=== PATIENT | female | born 1970 | race Caucasian/White ===

== ENCOUNTER 2022-07-24 11:03 | Outpatient (REF) | payer OTHER, SELFPAY ==
[2022-07-24 11:25] LABS: MANUAL DIFF FLAG NO
[2022-07-24 13:00] LABS: Basophils Percent Auto 0.5 % (0-2); Eosinophils Absolute Auto 0.2 X10*3/uL (0.0-0.4); Eosinophils Percent Auto 2.9 % (0-4); Hematocrit 37.3 % (37.0-47.0); Hemoglobin 11.7 g/dl (12.0-16.0); Imm Gran Abs Auto 0.02 X10*3/uL (0.00-0.03); Imm Gran Pct Auto 0.4 % (0.0-0.4); Lymphocytes Absolute Auto 1.8 X10*3/uL (1.2-4.9); Lymphocytes Percent Auto 32.8 % (20-40); Mean Corpuscular HGB Conc 31.4 g/dl (31.0-35.0); Mean Corpuscular Hemoglobin 24.7 pg (27.0-33.0); Mean Corpuscular Volume 78.9 fL (80.0-98.0); Mean Platelet Volume 11.5 fL (9.4-12.3); Monocytes Absolute Auto 0.4 X10*3/uL (0.1-1.2); Monocytes Percent Auto 7.7 % (2-11); Neutrophils Absolute Auto 3.1 x10*3/uL (2.0-8.3); Neutrophils Percent Auto 55.7 % (45-73); Platelet Count 224 X10*3/uL (160-400); Red Blood Count 4.73 X10*6/uL (4.20-5.50); Red Cell Distribution Width 14.7 % (11.0-16.0); White Blood Count 5.5 X10*3/uL (4.8-10.8)
[2022-07-24 13:48] LABS: Alanine Aminotransferase 24 U/L (0-31); Alkaline Phosphatase 44 U/L (39-117); Anion Gap 11 (12-20); Aspartate Amino Transferase 19 U/L (5-31); Bilirubin Total 0.4 mg/dL (0.0-1.0); Blood Urea Nitrogen 12 mg/dL (9-16); Calcium 8.8 mg/dL (8.4-10.2); Carbon Dioxide 21 mmol/L (22-29); Cholesterol 136 mg/dL; Estimated Glomerular Filt Rate > 60; Glucose Random 88 mg/dL (60-115); HDL Cholesterol 44 mg/dL; LDL Cholesterol Calculated 78 mg/dl; Total Protein 6.5 g/dL (6.5-8.0); Triglycerides 73 mg/dL
[2022-07-24 14:26] LABS: Chloride 110 mmol/L (96-108); Potassium 4.1 mmol/L (3.3-5.1); Sodium 139 mmol/L (135-145)
== END 2022-07-24 11:04 | disposition home or self-care (01) ==
LOC: HO.LAB 11:03
PROVIDERS: PCP Internal Medicine; Visit Provider Internal Medicine
DX: Z00.00 Encounter for general adult medical examination without abnormal findings (principal); B35.1 Tinea unguium; I10 Essential (primary) hypertension; M76.61 Achilles tendinitis, right leg
CPT/HCPCS: 36415; 80053; 80061; 84443; 85025

== ENCOUNTER 2022-10-23 12:44 | Outpatient (REF) | payer OTHER, SELFPAY ==
[2022-10-23 13:07] LABS: MANUAL DIFF FLAG NO
[2022-10-23 14:00] LABS: Basophils Percent Auto 0.5 % (0-2); Eosinophils Absolute Auto 0.2 X10*3/uL (0.0-0.4); Eosinophils Percent Auto 2.7 % (0-4); Hematocrit 36.7 % (37.0-47.0); Hemoglobin 11.8 g/dl (12.0-16.0); Imm Gran Abs Auto 0.02 X10*3/uL (0.00-0.03); Imm Gran Pct Auto 0.4 % (0.0-0.4); Lymphocytes Absolute Auto 1.8 X10*3/uL (1.2-4.9); Mean Corpuscular HGB Conc 32.2 g/dl (31.0-35.0); Mean Corpuscular Hemoglobin 24.5 pg (27.0-33.0); Mean Corpuscular Volume 76.1 fL (80.0-98.0); Mean Platelet Volume 11.3 fL (9.4-12.3); Monocytes Absolute Auto 0.5 X10*3/uL (0.1-1.2); Monocytes Percent Auto 8.1 % (2-11); Neutrophils Absolute Auto 3.1 x10*3/uL (2.0-8.3); Neutrophils Percent Auto 56.3 % (45-73); Platelet Count 212 X10*3/uL (160-400); Red Blood Count 4.82 X10*6/uL (4.20-5.50); Red Cell Distribution Width 14.9 % (11.0-16.0); White Blood Count 5.6 X10*3/uL (4.8-10.8)
[2022-10-23 14:44] LABS: Ferritin 6 ng/mL (10-250)
[2022-10-24 21:23] LABS: Rubella IgG Antibody 7.05 Index; Rubeola IgG (Measles) >300.00 AU/mL
== END 2022-10-23 12:45 | disposition home or self-care (01) ==
LOC: HO.LAB 12:44
PROVIDERS: PCP Internal Medicine; Visit Provider Internal Medicine
DX: B35.1 Tinea unguium (principal); D64.9 Anemia, unspecified; M76.61 Achilles tendinitis, right leg
CPT/HCPCS: 36415; 82728; 85025; 86735; 86762; 86765; 86787

== ENCOUNTER 2025-02-15 14:30 | Outpatient (REF) | payer OTHER, SELFPAY ==
--- OUTSIDE RECORDS SUMMARY | 2025-02-15 13:00 | XMS_ITS | Encounter Summary ---
Author Organization [employer] Address [address] [facility] 7t [place] [address] Care Team Providers Care Wall Taper Name Role Phone Monica Alvarenga Primary Care Provider [phone] Encounter Details Date Type Department Care Team ([facility] st Contact Info) Description 02/15/2025 1:00 PM EST Office Visit [facility] MED[facility]INE [address], [place] [phone] Monica Alvarenga FNP [address] [place] [address] Adult wellness visit (Primary Dx) Social History Tobacco Use Types Packs/Day Years Used Date Smoking Tobacco: Never Passive Smoke Exposure: Never Smokeless Tobacco: Never Tobacco Cessation:Counseling Given: Not Answered Housing Stability Answer Date Recorded What is your housing situation today? I have balaji lerma 02/04/[address] you li ve. Do you have problems with any of the following? None of the above 02/04/2025 Food Insecurity Answer Date Recorded Within the past 12 months, y ou worried that your food would run out before you got money to buy more: Never True 02/04/2025 Within the past 12 months,th e food you bought just didn't last and you didn't have enough money to get more: Never True 01/2025 Transportation Answer Date Recorded In the past 12 months, has l ack of transportation kept you from medical appts, meetings, work or from getting things needed for daily living? No 02/04/2025 Utilities Answer Date Recorded In the past 12 months, has t he electric, gas, oil or water company threatened to shut off services in your home? No 02/04/2025 Internet Access Answer Date Recorded Internet Access Q1 Yes 02/04/2025 Internet Access Q2 Not on file 02/04/2025 Comments Unknown Sex and Gender Information Value Date Recorded Sex Assigned at Female 12/24/2021 10:35 AM EDT Legal Sex Female 10:35 AM EDT Gender Identity Female 12/23/2024 12:11 PM EDT Sexual Orientation Straight 12/23/2024 12 :11 PM EDT documented as of this encounter Last Filed Vital Signs Vital Sign Reading Time Taken Comments Blood Pressure 124/66 02/15/2025 1:05 PM EST Pulse 64 02/15/2025 1:05 PM EST Temperature 36.4 C (97.6 F) 02/15/2025 1:05 PM EST Respiratory Rate 16 02/15/2025 1:05 PM EST Oxygen Saturation 97% 02/15/2025 1:05 PM EST Inhaled Oxygen Concentration - - Weight 82.7 kg (182 lb 4 oz) 02/15/2025 1:05 PM EST Height 164.5 cm (5' 4.76 ) 02/15/2025 1:05 PM ES T Body Mass Index 30.55 02/15/2025 1:05 PM EST documented in this encounter Plan of Treatment Upcoming Encounters Date Type Department Care Team (Late st Contact Info) Description 04/18/2025 3:15 PM EST Office Visit [facility] [address] [place] [address] Monica Alvarenga FNP [address] [place] [address] Scheduled Orders Name Type Priority Associated Diagnoses Orde r Schedule Comprehensive Metabolic Panel Lab Routine Adult Wellness Visit Expected: 02/15/2025 (Approximate), Expires: 02/15/2026 TSH Lab Routine Adult Wellness Visit Expected: 02/15/2025 (Approximate), Expires: 02/15/2026 Hepatitis B surface antigen, EIA Lab Routine Adult wellness visit Expected: 02/15/2025 (Approximate), Expires: 02/15/2026 Hepatitis C Antibody with Reflex to HCV, RNA, Quantitative, Real-Time PCR Lab Routine Adult wellness visit Expected: 02/15/2025, Expires: 02/15/2026 CBC auto differential Lab Routine Adult wellness visit Expected: 02/15/2025 (Approximate), Expires: 02/15/2026 HIV-1/2 Antigen and Antibodies, Fourth Generation, with Reflexes Lab Routine Adult wellness visit Expected: 02/15/2025 (Approximate), Expires: 02/15/2026 Lipid Panel, Standard Lab Routine Adult wellness visit Expected: 02/15/2025 (Approximate), Expires: 02/15/2026 Hemoglobin A1c Lab Routine Adult wellness visit Expected: 02/15/2025 (Approximate), Expires: 02/15/2026 Chlamydia/N. Gonorrhoeae, PCR, Urine Lab Routine Adult wellness visit Ordered: 02/15/2025 documented as of this encounter Visit Diagnoses Diagnosis Adult wellness visit- Primary documented in this encounter Care Teams Wall Taper Relationship Specialty Start Date End Date Monica Alvarenga FNP [address] [place] [phone] PCP - General Family Medicine 02/15/25 documented as of this encounter
--- OUTSIDE RECORDS SUMMARY | 2025-02-15 15:48 | XMS_ITS | Encounter Summary ---
Author Organization [employer] Address [address] [facility] [address]t [place] [address] Care Team Providers Care Oil Well Service Operator Helper Name Role Phone Monica Alvarenga CONTENT DESIGNER Primary Care Provider [phone] Encounter Details Date Type Department Care Team (Latest Contact Info) Description 02/15/2025 Travel Social History Tobacco Use Types Packs/Day Years Used Date Smoking Tobacco: Never Passive Smoke Exposure: Never Smokeless Tobacco: Never Housing Stability Answer Date Recorded What is [...] PM EDT documented as of this encounter Plan of Treatment Upcoming Encounters Date Type Department Care Team (Late st Contact Info) Description 04/18/2025 3:15 PM EST Office Visit [facility] MEDICINE [address] [place] [address] Monica Alvarenga FNP [address] [place] [address] documented as of this encounter Visit Diagnoses Not on filedocumented in this encounter Care Teams Oil Well Service Operator Helper Relationship Specialty Start Date End Date Monica Alvarenga FNP [address] [place] [address] PCP - General Family Medicine 02/15/25 documented as of this encounter
--- OUTSIDE RECORDS SUMMARY | 2025-02-15 15:48 | XMS_ITS | Clinical Summary ---
Author Organization [facility] Address [address] [place] [address] Phone Care Team Providers Care Errand Runner Name Role Phone Shasta Campbell MD Primary Care Provider [phone] Social History Tobacco Use Types Packs/Day Years Used Date Smoking Tobacco: Never Assessed Comments Unknown Sex and Gender Information Value Date Recorded Sex Assigned at Not on file Legal Sex Female 8:04 PM EST Gender Identity Not on file Sexual Orientation Not on file Plan of Treatment Health Maintenance Due Date Last Done Comments Colorectal Cancer Screening: Colonoscopy 1972 DTaP,Tdap,and Td Vaccines (1 - Tdap) 08/25/1991 Hepatitis B Vaccines (1 of 3 - 19+ 3-dose series) 08/25/1991 Cervical Cancer Screening: P ap Smear 1993 Pneumococcal Vaccine: 50+ Ye ars (1 of 1 - PCV) 2022 Zoster Vaccines (1 of 2) 2022 HIV Screening 03/20/2023 Hepatitis C Screening 03/20/2023 Social Influencers of Health Screening 03/20/2023 Depression Screening 02/25/2024 COVID-19 Vaccine (1 - 2024-2 6 season) 2024 Influenza Vaccine (#1) 2024 Breast Cancer Screening 08/26/2025 08/27/2023 RSV Immunization Adult Patie nts (1 - 1-dose 75+ series) 08/25/2047 HIB Vaccines Aged Out No longer eligi ble based on patient's age to complete this topic HPV Vaccines Aged Out No longer eligi ble based on patient's age to complete this topic Hepatitis A Vaccines Aged Out No long er eligible based on patient's age to complete this topic IPV Vaccines Aged Out No longer eligi ble based on patient's age to complete this topic MMR Vaccines Aged Out No longer eligi ble based on patient's age to complete this topic Meningococcal ACWY Vaccine Aged Out N o longer eligible based on patient's age to complete this topic Meningococcal B Vaccine Aged Out No l onger eligible based on patient's age to complete this topic RSV Immunization Patients Un gretchen 20 months Aged Out No longer eligible b ased on patient's age to complete this topic Varicella Vaccines Aged Out No longer eligible based on patient's age to complete this topic Procedures Procedure Name Priority Date/Time Associated Diagnosis Comments [facility] SCREENING DIGITAL Routine 08/27/2023 4:32 PM EDT Encounter for screening mammogram for malignant neoplasm of breast from Last 3 Months or Most Recently Relevant to Health Maintenance Results * [facility] SCREENING DIGITAL (08/27/2023 4:32 PM EDT) Anatomical Region Laterality Modality Mammography 08/18/2023 9:42 AM EDT Narrative 08/27/2023 4:32 PM EDT [facility] Diagnostic Imaging Department [address] [place] [address] Patient: FABY MIN D.O.B./Age/Sex: 1970 - 53 - F Unit#: [id number] Location/Status: SPDIMAM/REG CLI Mnemonic/Ordering Site: [facility] Ordering Physician: SHASTA CAMPBELL MD [facility] Screening Digital - 08/18/23 - 1005 Report Status:Signed EXAM: [facility] Screening Digital EXAM DATE AND TIME: 08/18/2023 10:06 AM HISTORY: Screening. COMPARISON: 09/27/19 [place], [place] TECHNIQUE: Bilateral digital breast tomosynthesis was performed in the CC and MLO projections. Computer aided detection with [employer] 3D 3.1 was employed. TISSUE DENSITY: c. The breasts are heterogeneously dense, which may obscure small masses. FINDINGS: A 1 cm asymmetry is seen in the upper right breast, MLO views only, possibly summation artifact. MLO spot compression tomosynthesis views and full lateral tomosynthesis views are recommended for further assessment. No grouped microcalcifications or areas of architectural distortion are seen. There are rare benign calcifications. The skin and vascularity are unremarkable. IMPRESSION: 1. Right breast asymmetry, for which additional views are recommended. The patient will be called back. 2. Stable mammographic appearance of the left breast. No evidence of malignancy is seen. BI-RADS: Category 0: Incomplete - Need Additional Imaging Evaluation RECOMMENDATION(S): 1: Special mammographic view(s) needed RIGHT Dictating Physician: RADHIKA BEAN MD Electronically Signed by: RADHIKA BEAN MD Dic Date/Time: 08/27/23 1631 Sign date/Time: 08/27/23 1632 Procedure Note Radhika Bean MD - 12/10/2023 [facility] Diagnostic Imaging Department [address] [place] [id number] Patient: FABY MIN /Age/Sex: 1970 - 53 - F Unit#: [id number] Location/Status: SPDIMA/REG CLI Mnemonic/Ordering Site: [facility] Ordering Physician: SHASTA CAMPBELL MD [facility] Screening Digital - 08/18/23 - 1005 Report Status:Signed EXAM: [facility] Screening Digital EXAM DATE AND TIME: 08/18/2023 10:06 AM HISTORY: Screening. COMPARISON: 09/27/19 [place], [place] TECHNIQUE: Bilateral digital breast tomosynthesis was performed in the CCand MLO projections. Computer aided detection with [employer] 3D 3.1was employed. TISSUE DENSITY: c. The breasts are heterogeneously dense, which mayobscure small masses. FINDINGS: A 1 cm asymmetry is seen in the upper right breast, MLO views only,possibly summation artifact. MLO spot compression tomosynthesis views and fulllateral tomosynthesis views are recommended for further assessment. No grouped microcalcifications or areas of architectural distortion areseen. There are rare benign calcifications. The skin and vascularity areunremarkable. IMPRESSION: 1. Right breast asymmetry, for which additional views are recommended.The patient will be called back. 2. Stable mammographic appearance of the left breast. No evidence ofmalignancy is seen. BI-RADS: Category 0: Incomplete - Need Additional Imaging Evaluation RECOMMENDATION(S): 1: Special mammographic view(s) needed RIGHT Dictating Physician: RADHIKA BEAN MD Electronically Signed by: RADHIKA BEAN MD Dic Date/Time: 08/27/23 1631 Sign date/Time: 08/27/23 1632 us Shasta Campbell MD IMG BI PROCEDURES Final Resul t from Last 3 Months or Most Recently Relevant to Health [place] [address] Care Teams Errand Runner Relationship Specialty Start Date End Date Shasta Campbell MD [address] [place] [address] [place] [address] PCP - General 07/25/23
--- OUTSIDE RECORDS SUMMARY | 2025-02-15 15:48 | XMS_ITS | Clinical Summary ---
Author Organization [employer] Address [address] [facility] 7t [place] [address] Care Team Providers Care Intermediate Manager Name Role Phone Monica Alvarenga Primary Care Provider [phone] Allergies No known active allergies Medications ferrous sulfate 325 (65 Fe) MG tablet Take 1 tablet by mouth Once per day. 05/16/2024 Active naproxen (Naprosyn) 500 MG tablet Take 1 tablet by mouth 2 times daily. 08/12/2024 Active Encounters Date Type Department Care Team Description 02/15/2025 1:00 PM EST Office Visit [facility] MEDICINE [address] [place] [phone] Monica Alvarenga FNP Adult wellness visit (Primary Dx) 02/15/2025 Travel 02/15/2025 Telephone [facility] MEDICINE [address] [place] [address] [phone] Nima Todd MD New Patient 02/14/2025 Telephone [facility] MEDICINE [address] [place], [place] [phone] Young Kruse [place] CHARTPREP 02/04/2025 Patient Outreach [facility] MEDICINE [address] [place], [place] [phone] Monica Alvarenga FNP Pre-visit Planning (SDOH Screening negative and Tobacco screening negative) 12/23/2024 Telephone [facility] MEDICINE [address] [place], [place] [phone] Calista Mora MD COURT SUPERVISOR from Last 3 Months Family History Medical History Relation Name Comments No Known Problems Brother No Known Problems Daughter No Known Problems Father Diabetes Mother Hyperlipidemia Mother Hypertension Mother No Known Problems Mother's Sister No Known Problems Sister No Known Problems Son Relation Name Status Comments Brother Daughter Father Mother Mother's Sister Sister Son Social History Tobacco Use Types Packs/Day Years [...] Orientation Straight 12/23/2024 12 :11 PM EDT Last Filed Vital Signs Vital Sign Reading [...] Mass Index 30.55 02/15/2025 1:05 PM EST Plan of Treatment Upcoming Encounters Date Type Department Care Team (Late st Contact Info) Description 04/18/2025 3:15 PM EST Office Visit [facility] MEDICINE [address] [place] [address] Monica Alvarenga FNP [address] [place], [place] [phone] Health Maintenance Due Date Last Done Comments CT Colonography 1972 Colonoscopy 1972 Colorectal Cancer Screening 1972 Depression Screening 1972 FIT DNA/Cologuard 1972 FIT 1972 FOBT 1972 Sigmoidoscopy 1972 Disability Screening 1972 Alcohol/Substance Use Screening 1984 Family Planning (PISQ) 08/25/1987 Pap Smear 1993 Mammogram 09/26/2021 09/27/2019 Pneumococcal Vaccine: 50+ Years (1 of 1 - PCV) 2022 Zoster Vaccines (1 of 2) 2022 Cervical Cancer Screening 03/19/2024 HPV/Cotest 03/19/2024 03/19/2019 Influenza Vaccine (#1) 2025 03/05/2023 Postp oned from 10/25/2024 (Patient Refused) SDOH Screening 02/04/2026 02/04/2025 COVID-19 Vaccine (4 - 2024-2 6 season) 2026 03/19/2023, 03/01/2021, 02/08/2021 Postponed from 10/25/2024 (Patient Refused) Tobacco Screening 02/15/2026 02/15/2025 DTaP/Tdap/Td Vaccines (2 - T d or Tdap) 03/23/2032 03/23/2022 RSV Patients and Patients Aged 60 years or older (1 - 1-dose 75+ series) 08/25/2047 HIV Screening Completed 03/05/2019 Hepatitis C Screening Completed 03/05/2019 Hepatitis B Vaccines Completed 04/05/2023, 03/05/2023, 03/28/2022 HIB Vaccines Aged Out No longer eligi [...] patient's age to complete this topic Meningococcal Vaccine Aged Out No sang paco eligible based on patient's age to complete this topic RSV under 20 months Aged Out No longe r eligible based on patient's age to complete this topic Rotavirus Vaccines Aged Out No longer eligible based on patient's age to complete this topic Procedures Procedure Name Priority Date/Time Associated Diagnosis Comments BI MAMMOGRAM DIAGNOSTIC BILATERAL Routine 09/27/2019 5:35 PM EDT [facility] HISTORICAL HPV MRNA E6/E7 Routine 03/19/2019 12:00 AM EST [facility] HIST[facility] HEPATITIS C ANTIBODY RFLX Routine 03/05/2019 2:16 PM EST [facility] HISTOR[facility] HIV AB/AG Routine 03/05/2019 2:16 PM EST from Last 3 Months or Most Recently Relevant to Health Maintenance Results * 3D BILATERAL DIAGN MAMMO 1 (09/27/2019 5:35 PM EDT) Anatomical Region Laterality Modality Breast Bilateral Mammography 09/27/2019 5:35 PM EDT Narrative 09/28/2019 8:28 AM EDT Refer to the Notes tab for result details [facility] Procedure: 3D BILATERAL DIAGN MAMMO 1 Procedure Note Provider, Historical, - 05/18/2022 Refer to the Notes tab for result details [facility] Procedure: 3D BILATERAL DIAGN MAMMO 1 us Historical Provider MD ROBIN BI PROCEDURES Final R esult * HPV mRNA E6/E7 (03/19/2019 12:00 AM EST) HPV mRNA E6/E7 Not Detected NOT DETECTED [facility] Comment: This test was performed using the APTIMA(R) HPV Assay ([employer] This assay detects E6/E7 viral messenger RNA (mRNA) from 14 high-risk HPV types (16,18,31,33,35,39,45,51, 52,56,58,59,66,68). For additional information please refer to: http://[employer]/faq/KGM397w9 (This link is being provided for informational/ educational purposes only.) The analytical performance characteristics of this assay have been determined by [employer] [place], [place]. The modifications have not been cleared or approved by the FDA. This assay has been validated pursuant to the CLIA regulations and is used for clinical purposes. Test Performed by [facility] [employer] [place], [address] [place] [address] Nick Buckner M.D., Ph.D., Director of Laboratories , CLIA [id number] Please note: Effective 11/06/2015, HPV testing will be performed using [employer]'s APTIMA test which targets mRNA. Detecting mRNA instead of DNA, as in older methods, offers significant improvements in specificity. 03/19/2019 Historical Provider HISTORICAL/NON ORDERABLE LABS Final Result Performing Organization Address [facility] Phone Number [facility] [address] [place] [address], * HEPATITIS C ANTIBODY RFLX (03/05/2019 2:16 PM EST) Pathologist [facility] HEPATITIS C ANTIBODY NONREACTIVE NONREACTIVE [facility] Comment: Antibodies to HCV not detected; does not exclude early acute HCV infection. 03/05/2019 2:16 PM EST us Historical Provider HISTORICAL/NON ORDERABLE LABS Final Result Performing Organization Address [facility] [place] Phone Number [facility] [address] [place] [address], * HIV AB/AG (03/05/2019 2:16 PM EST) HIV AG/AB NONREACTIVE [facility] Comment: HIV-1 p24 Ag and/or HIV-1/HIV-2 Ab not detected. A test result that is nonreactive does not exclude the possibility of exposure to or infection with HIV-1 and/or HIV-2. Nonreactive results in this assay for individuals with prior exposure to HIV-1 and/or HIV-2 may be due to antigen and antibody levels that are below the limit of detection of this assay. The [employer] HIV Ag/Ab Combo assay result and supplemental assay results should be interpreted in conjunction with the patient's clinical presentation, history and other laboratory results. If the results are inconsistent with clinical evidence, additional testing is suggested to confirm the result. 03/05/2019 2:16 PM EST us Historical Provider HISTORICAL/NON ORDERABLE LABS Final Result [facility] [address] from Last 3 Months or Most Recently Relevant to Health Maintenance Insurance [facility] Care Teams Intermediate Manager Relationship Specialty Start Date End Date Monica Alvarenga FNP [address] [place] [phone] PCP - General Family Medicine 02/15/25
--- OUTSIDE RECORDS SUMMARY | 2025-02-15 15:48 | XMS_ITS | Encounter Summary ---
Author Organization [employer] Address [address] [facility] 7t [place] [address] Care Team Providers Care Protective Service Specialist Name Role Phone Juanjo Alvarengaupe [employer] Primary Care Provider [phone] Reason for Visit * Reason Onset Date Comments New Patient 02/15/2025 Encounter Details Date Type Department Care Team ([facility] st Contact Info) Description 02/15/2025 Telephone [facility] MED[facility]INE [address] [place], [place] [phone] Nima Todd MD [address] [place] [address] New Patient Social History Tobacco Use Types Packs/Day Years Used Date Smoking Tobacco: Never Passive Smoke Exposure: Never Smokeless Tobacco: Never Housing Stability Answer Date Recorded What is your housing situation today? I have balajimireya lerma 02/04/[address] you [...] PM EDT documented as of this encounter Miscellaneous Notes * Telephone Encounter - Hakeem Suhail - 02/15/2025 8:48 AM EST Tc from pt requesting to reschedule today's HAND ICER appointment. Please contact pt at [phone]. documented in this encounter Plan of Treatment Upcoming Encounters Date Type Department Care Team (Late st Contact Info) Description 04/18/2025 3:15 PM EST Office Visit [facility] MEDICINE [address] [place] [address] Monica Alvarenga FNP [address] [place] [address] documented as of this encounter Visit Diagnoses Not on filedocumented in this encounter Care Teams Protective Service Specialist Relationship Specialty Start Date End Date Monica Alvarenga FNP [address] [place] [address] PCP - General Family Medicine 02/15/25 documented as of this encounter
--- OUTSIDE RECORDS SUMMARY | 2025-02-15 15:48 | XMS_ITS | Encounter Summary ---
Author Organization [employer] Address [address] [facility] 7t [place] [address] Care Team Providers Care Spin Table Operator Name Role Phone Unavailable Primary Care Provider Unavailabl e Reason for Visit * Reason Onset Date Comments CHARTPREP 02/14/2025 Encounter Details Date Type Department Care Team ([facility] st Contact Info) Description 02/14/2025 Telephone [facility] MEDICINE [address] [place] [address] Young Kruse [place] CHARTPREP Social History Tobacco Use Types Packs/Day Years Used Date Smoking Tobacco: Never Assessed Housing Stability Answer Date Recorded What is your housing situation today? I have balaji maria guadalupe 02/04/[address] you li [...] encounter Miscellaneous Notes * Telephone Encounter - Young Kruse [place] - 02/14/2025 9:27 AM EST Chart Prep Labs: not applicable Images: not applicable Referrals: not applicable Vaccines due: Covid, Flu, PCV20, and Zoster Screenings: colonoscopy, mammogram, and pap smear,alcohol/substance use screening,family planning Overdue care gaps: SBIRT, PHQ-9, JERRY-7, Disability screen, and Tobacco documented in this encounter Plan of Treatment Upcoming Encounters Date Type Department Care Team (Late st Contact Info) Description 04/18/2025 3:15 PM EST Office Visit [facility] MEDICINE [address] [place] [address] Monica Alvarenga FNP [address] [place] [address] documented as of this encounter Visit Diagnoses Not on filedocumented in this encounter
[2025-02-15 16:21] LABS: MANUAL DIFF FLAG NO
[2025-02-15 16:24] LABS: Hematocrit 40.9 % (37.0-47.0); Hemoglobin 13.6 g/dl (12.0-16.0); Imm Gran Abs Auto 0.03 X10*3/uL (0.00-0.03); Imm Gran Pct Auto 0.5 % (0.0-0.4); Lymphocytes Absolute Auto 1.7 X10*3/uL (1.2-4.9); Mean Corpuscular HGB Conc 33.3 g/dl (31.0-35.0); Mean Corpuscular Hemoglobin 27.6 pg (27.0-33.0); Mean Corpuscular Volume 83.1 fL (80.0-98.0); NRBC Abs Auto 0.000 X10*3/uL (0.0-0.012); NRBC Pct Auto 0.0 /100WBC (0.0-0.2); Platelet Count 229 X10*3/uL (160-400); Red Blood Count 4.92 X10*6/uL (4.20-5.50); White Blood Count 5.5 X10*3/uL (4.8-10.8)
[2025-02-15 16:45] LABS: Alanine Aminotransferase 23 U/L (0-31); Albumin Level 4.4 g/dL (3.5-5.0); Alkaline Phosphatase 43 U/L (39-117); Anion Gap 9 (12-20); Aspartate Amino Transferase 23 U/L (5-31); Blood Urea Nitrogen 14 mg/dL (9-16); Calcium 9.5 mg/dL (8.4-10.2); Carbon Dioxide 24 mmol/L (22-29); Chloride 112 mmol/L (96-108); Cholesterol 138 mg/dL (<200); Estimated Glomerular Filt Rate > 60; HDL Cholesterol 46 mg/dL (>40); Potassium 4.2 mmol/L (3.3-5.1); Sodium 141 mmol/L (135-145); Total Protein 6.9 g/dL (6.5-8.0); Triglycerides 207 mg/dL (<150)
[2025-02-15 16:58] LABS: Thyroid Stimulating Hormone 2.43 uIU/mL (0.32-4.0)
[2025-02-15 17:52] LABS: CT PCR Urine NOT DETECTED (Not Detect.); NG PCR Urine NOT DETECTED (Not Detect.)
[2025-02-16 04:09] LABS: HBsAGNum1 0.30 S/CO (0.00-0.99); HIV Num 1 0.07 S/CO (0.00-0.99); Hepatitis B Surface Antigen Negative (Negative); ~HepC Num1 0.08 S/CO (0.00-0.79); ~Hepatitis C Antibody Nonreactive (Nonreactive)
== END 2025-02-15 14:31 | disposition home or self-care (01) ==
LOC: HO.HHCL 14:30
PROVIDERS: PCP Nurse Practitioner Family; Visit Provider Nurse Practitioner Family
DX: Z00.00 Encounter for general adult medical examination without abnormal findings (principal); Z20.2 Contact with and (suspected) exposure to infections with a predominantly sexual mode of transmission; Z11.4 Encounter for screening for human immunodeficiency virus [HIV]; Z11.59 Encounter for screening for other viral diseases
CPT/HCPCS: 80053; 80061; 83036; 84443; 85025; 86803; 87340; 87389; 87491; 87591